=== PATIENT | female | born 1955 | race Caucasian/White ===

== ENCOUNTER 2016-12-14 12:49 | Emergency (ER) | payer OTHER ==
[~2016-12-14] VITALS: Ht 154.9 cm; Wt 72.6 kg
[~2016-12-14 12:49] MED LIST: ATENOLOL 25 MG25 M1; ATIVAN1 MG; DEPAKOTE 250MG250 M1; EFFEXOR25 MG; KEFLEX500 MG PO; METFORMIN HYDR100 GM; SYNTHROID300 MCG; TRINATAL GT TA1 EACH PO; VITAMIN B-1100 M1 PO; WELLBUTRIN 100100 M1; ZOLOFT20 MG/1 ML
[2016-12-14] MEDS ORDERED: LIPITOR10 MG PO ×2 (13:05→13:06)
[2016-12-14] MEDS ORDERED: NORCO 5-325 TA1 EACH PO (14:57)
[2016-12-14 16:02] VITALS: BP 124/75
== END 2016-12-14 16:10 | disposition home or self-care (01) ==
LOC: ER 12:49
DX: S82.832A Other fracture of upper and lower end of left fibula, initial encounter for closed fracture (principal); S80.11XA Contusion of right lower leg, initial encounter; S60.812A Abrasion of left wrist, initial encounter; E11.9 Type 2 diabetes mellitus without complications; E03.9 Hypothyroidism, unspecified; I10 Essential (primary) hypertension; E78.5 Hyperlipidemia, unspecified; Z96.649 Presence of unspecified artificial hip joint; Z88.0 Allergy status to penicillin; V89.2XXA Person injured in unspecified motor-vehicle accident, traffic, initial encounter; Y93.89 Activity, other specified; Y92.9 Unspecified place or not applicable; Y99.8 Other external cause status